=== PATIENT | male | born 1980 | race Caucasian/White ===

== ENCOUNTER 2017-01-20 05:30 | Emergency (ER) | payer OTHER ==
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
== END 2017-01-20 10:40 | disposition home or self-care (01) ==
LOC: CED 05:30 → EDBD 05:30 → CFTX 07:42 → CED 07:42 → CFTX 10:40
DX: S01.81XA Laceration without foreign body of other part of head, initial encounter (principal); S02.2XXB Fracture of nasal bones, initial encounter for open fracture; S01.21XA Laceration without foreign body of nose, initial encounter; F17.210 Nicotine dependence, cigarettes, uncomplicated; Z23 Encounter for immunization; W22.8XXA Striking against or struck by other objects, initial encounter; Y92.410 Unspecified street and highway as the place of occurrence of the external cause
CPT/HCPCS: 12011; 12052; 70450; 90471; 90715; 99283